=== PATIENT | female | born 1945 | race Caucasian/White ===

== ENCOUNTER 2022-08-04 11:37 | Emergency (ER) | payer OTHER ==
[2022-08-04 12:00] VITALS: RESP 18; BMI 22.6
[2022-08-04] MEDS ORDERED: LIDOCAINE HCL 1%, 10 MG/ML (50 mL VIAL) SQ ONE (14:08)
[2022-08-04] MEDS ORDERED: LIDOCAINE HCL 1%, 10 MG/ML (10ML VIAL) MDV ONE (14:11)
[2022-08-04 14:17] LABS: BASO % 0.9 % (0-2.0); EOS % 4.3 % (0-4.5); HEMOGLOBIN 10.8 GM/dL (10.7-15.3); LYMPH % 10.3 % (8-40); MCHC 31.8 g/dl (32.0-36.0); MEAN PLT VOLUME 7.9 fl (7.5-11.1); MONO % 13.5 % (3.8-10.2); PLATELET COUNT 285 10^3/uL (134-434); RDW 14.7 % (11.6-15.6); WHITE BLOOD COUNT 5.7 K/mm3 (4.0-10.0)
[2022-08-04 14:45] LABS: CALCIUM 9.9 mg/dL (8.5-10.1)
[2022-08-04 14:46] LABS: ALBUMIN 3.4 g/dl (3.4-5.0); BLOOD UREA NITROGEN 20.6 mg/dL (7-18)
[2022-08-04 14:49] LABS: CREATININE 0.7 mg/dL (0.55-1.3)
[2022-08-04 14:50] LABS: TOT PROT 6.6 g/dl (6.4-8.2)
[2022-08-04 15:23] LABS: BILIRUBIN,TOTAL 0.4 mg/dL (0.2-1)
[2022-08-04] MEDS ORDERED: CLINDAMYCIN HCL 150 MG CAPSULE (FP) PO ONE (17:56)
[2022-08-04] MEDS ORDERED: CLINDAMYCIN HCL 150 MG CAPSULE (FP) ONE (18:09)
[2022-08-04 19:29] VITALS: BP 116/70; PULSE 62; TEMP 97.8
== END 2022-08-04 19:29 | disposition home or self-care (01) ==
LOC: JER 11:37
PROC: 0HQJXZZ Repair Left Upper Leg Skin, External Approach (ICD-10-PCS; principal; 2022-08-04)
DX: S56.922A Laceration of unspecified muscles, fascia and tendons at forearm level, left arm, initial encounter (principal); W18.30XA Fall on same level, unspecified, initial encounter
CPT/HCPCS: 36415; 73060-TC-LT-FY; 80053; 83735; 85025; 93005; 93010; 99285-25